=== PATIENT | female | born 1985 | race Two or more races ===

== ENCOUNTER 2017-10-17 15:47 | Observation (INO) | payer OTHER ==
[~2017-10-17] VITALS: Ht 152.4 cm; Wt 85.3 kg
[2017-10-17 16:15] VITALS: BP 111/72
== END 2017-10-17 19:12 | disposition home or self-care (01) | DRG 782 ==
LOC: ER 16:01 → LDRP 16:10
PROVIDERS: ADMIT Specialist; ATTEND Specialist
DX: O46.92 Antepartum hemorrhage, unspecified, second trimester (principal); O20.0 Threatened abortion; Z3A.25 25 weeks gestation of pregnancy
CPT/HCPCS: 59025; 76805; 81002; 99285; G0378